=== PATIENT | male | born 1990 | race Caucasian/White ===

== ENCOUNTER 2022-09-30 16:30 | Emergency (ER) | payer OTHER | END 2022-09-30 18:04 | LOC: NAV ERS 16:30 | DX: S02.2XXA Fracture of nasal bones, initial encounter for closed fracture (principal); S01.112A Laceration without foreign body of left eyelid and periocular area, initial encounter; Z87.891 Personal history of nicotine dependence; Y04.0XXA Assault by unarmed brawl or fight, initial encounter | CPT/HCPCS: 12013; 70450; 70486 ==